=== PATIENT | male | born 1980 | race African-American/Black ===

== ENCOUNTER 2018-06-24 00:30 | Emergency (ER) | payer SELFPAY ==
[~2018-06-24] VITALS: Ht 177.8 cm; Wt 81.0 kg
[2018-06-24] MEDS ORDERED: SODIUM CHLORIDE 0.9% 1,000 ML IV ONE (01:04)
[2018-06-24] MEDS ORDERED: LORAZEPAM 2MG/ML CPJ IV ONE (01:15)
[2018-06-24 01:25] LABS: BASOPHILS % 0.5 % (0.0-2.0); EOSINOPHILS % 0.4 % (0.0-5.0); LYMPHOCYTES % 22.5 % (20.0-50.0); MEAN CORPUSCULAR VOLUME 88.8 fL (80.0-94.0); MEAN PLATELET VOLUME 9.5 fl (7.4-10.4); MONOCYTES % 7.2 % (2.0-8.0); NEUTROPHILS % 69.4 % (40.0-76.0); PLATELET 216 x1000/uL (130-400); RED BLOOD CELL COUNT 4.85 mill/uL (4.7-6.1); RED CELL DISTRIBUTION WIDTH 14.1 % (11.6-14.6)
[2018-06-24 01:30] LABS: CHLORIDE 111 mEq/L (98-107)
[2018-06-24] MEDS ORDERED: PHENYTOIN SODIUM EXTENDED 100MG CAPSULE PO ONE (02:00)
[2018-06-24] MEDS ORDERED: PHENYTOIN SODIUM 300 MG in SODIUM CHLORIDE 0.9% 50 ML IV NR (03:45)
[2018-06-24 06:43] VITALS: BP 137/80
== END 2018-06-24 06:43 | disposition home or self-care (01) ==
LOC: ER 00:30
DX: G40.909 Epilepsy, unspecified, not intractable, without status epilepticus (principal); Z91.14 Patient's other noncompliance with medication regimen
CPT/HCPCS: 36415; 80053; 80185; 85025; 96365; 96375; 99285; J1165; J2060; J7030

== ENCOUNTER 2020-04-03 04:08 | Inpatient (IN) | payer MEDICAID ==
[~2020-04-03] VITALS: Ht 172.7 cm; Wt 73.5 kg
[2020-04-03 04:52] LABS: BASOPHILS % 0.6 % (0.0-2.0); CHLORIDE 109 mEq/L (98-107); EOSINOPHILS % 2.9 % (0.0-5.0); HEMATOCRIT. 42.5 % (42.0-52.0); HEMOGLOBIN. 13.8 g/dL (14.0-18.0); LYMPHOCYTES % 49.4 % (20.0-50.0); MEAN CORPUSCULAR HEMOGLOBIN 28.6 pg (28.0-32.0); MEAN CORPUSCULAR VOLUME 87.8 fL (80.0-94.0); MEAN PLATELET VOLUME 8.8 fl (7.4-10.4); MONOCYTES % 8.4 % (2.0-8.0); NEUTROPHILS % 38.7 % (40.0-76.0); PLATELET 170 x1000/uL (130-400); RED BLOOD CELL COUNT 4.84 mill/uL (4.7-6.1); RED CELL DISTRIBUTION WIDTH 14.1 % (11.6-14.6)
[2020-04-03 04:56] LABS: ETHANOL BLOOD < 10 mg/dL
[2020-04-03] MEDS ORDERED: LEVETIRACETAM 500MG PREMIX 100 ML IV ONE (06:30)
[2020-04-03] MEDS ORDERED: LORAZEPAM 2MG/ML CPJ ONE (07:29)
[2020-04-03] MEDS ORDERED: PHENYTOIN SODIUM 100MG/2ML VIAL IV ONE (09:45)
[2020-04-03] MEDS ORDERED: PHENYTOIN SODIUM 500MG in SODIUM CHLORIDE 0.9% 50ML IV NR (10:00)
[2020-04-03] MEDS ORDERED: MAGNESIUM/ALUMINUM HYDROXIDE/SIMETHICONE 30ML UDC PO PRN (12:30)
[2020-04-03] MEDS ORDERED: NA PHOS,M-B/NA PHOS,DI-BA ENEMA 118ML PR PRN (12:30)
[2020-04-03] MEDS ORDERED: ACETAMINOPHEN 325MG TABLET PO PRN ×2 (12:30)
[2020-04-03] MEDS ORDERED: GUAIFENESIN 200MG/10ML SUGAR FREE UDC PO PRN (12:30)
[2020-04-03] MEDS ORDERED: ZOLPIDEM TARTRATE 5MG TABLET PO PRN (12:30)
[2020-04-03] MEDS ORDERED: CLONIDINE 0.1MG TABLET PO PRN (12:30)
[2020-04-03] MEDS ORDERED: NITROGLYCERIN 0.4MG TABLET SL SL PRN (12:30)
[2020-04-03] MEDS ORDERED: LORAZEPAM 2MG/ML CPJ IV PRN (12:30)
[2020-04-03] MEDS ORDERED: IPRATROPIUM/ALBUTEROL 0.5-3(2.5)MG/3ML NEB NEB PRN (12:30)
[2020-04-03] MEDS ORDERED: DOCUSATE SODIUM 100MG CAPSULE PO PRN (12:30)
[2020-04-03] MEDS ORDERED: ONDANSETRON HCL 4MG/2ML INJ IV PRN (12:30)
[2020-04-03] MEDS: ENOXAPARIN 40MG/0.4ML SYR SUBCUT SCH (13:00)
[2020-04-03 13:15] LABS: *AMPHETAMINES SCREEN URINE NEGATIVE (NEGATIVE); *BARBITURATES SCREEN URINE NEGATIVE (NEGATIVE); *BENZODIAZEPINES SCREEN URINE NEGATIVE (NEGATIVE); *COCAINE SCREEN URINE NEGATIVE (NEGATIVE); METHADONE URINE SCREEN NEGATIVE (NEGATIVE); OPIATES URINE SCREEN NEGATIVE (NEGATIVE); PHENCYCLIDINE URINE SCREEN NEGATIVE (NEGATIVE)
[2020-04-03 13:16] LABS: CANNABINOID URINE SCREEN PRESUMTIVE POSITIVE (NEGATIVE)
[2020-04-03 20:00] VITALS: BP 130/70
[2020-04-03 21:00] VITALS: BP 130/70
[2020-04-03] MEDS ORDERED: LEVETIRACETAM 500MG PREMIX 100 ML IV SCH (21:00)
[2020-04-03] MEDS: PHENYTOIN SODIUM EXTENDED 100MG CAPSULE PO SCH (22:19)
[2020-04-03] MEDS: FAMOTIDINE 20MG TABLET PO SCH (22:20)
[2020-04-04] VITALS: BP 128/78
[2020-04-04] MEDS: LEVETIRACETAM 500MG PREMIX 100 ML IV SCH ×3 (00:07→20:13)
[2020-04-04 00:12] LABS: CREATINE KINASE MB FRACTION 2.4 ng/mL (0.5-3.6)
[2020-04-04 00:24] LABS: CREATINE KINASE 1247 IU/L (39-308)
[2020-04-04 04:00] VITALS: BP 122/64
[2020-04-04] MEDS ORDERED: PHEN100C4 MT (07:02)
[2020-04-04 08:00] VITALS: BP 124/67
[2020-04-04] MEDS: FAMOTIDINE 20MG TABLET PO SCH ×2 (09:27→20:14)
[2020-04-04 12:00] VITALS: BP 114/62
[2020-04-04] MEDS: ENOXAPARIN 40MG/0.4ML SYR SUBCUT SCH (13:00)
[2020-04-04] MEDS: KETOROLAC 15MG/ML VIAL IV PRN (15:50)
[2020-04-04 16:14] VITALS: BP 105/40
[2020-04-04 20:00] VITALS: BP 140/69
[2020-04-04] MEDS: PHENYTOIN SODIUM EXTENDED 100MG CAPSULE PO SCH (20:14)
[2020-04-05] VITALS: BP 132/74
[2020-04-05 04:00] VITALS: BP 132/79
[2020-04-05] MEDS: KETOROLAC 15MG/ML VIAL IV PRN (04:31)
[2020-04-05 08:00] VITALS: BP 120/62
[2020-04-05] MEDS: LEVETIRACETAM 500MG PREMIX 100 ML IV SCH (09:15)
[2020-04-05] MEDS: FAMOTIDINE 20MG TABLET PO SCH (09:17)
[2020-04-05 10:24] VITALS: BP 120/70
== END 2020-04-05 11:20 | disposition home or self-care (01) | DRG 53 ==
LOC: ER 04:08 → 6WST 10:12 → ENRESERV 19:16
PROVIDERS: ADMIT Internal Medicine; ATTEND Internal Medicine
DX: G40.901 Epilepsy, unspecified, not intractable, with status epilepticus (principal); G92 Toxic encephalopathy; N17.0 Acute kidney failure with tubular necrosis; E16.2 Hypoglycemia, unspecified
CPT/HCPCS: 36415; 80053; 80185; 80305; 80320; 82550; 82553; 83036; 84484; 85025; 93005; 93970; 96365; 99285; J1165; J1650; J1885; J1953; J2060; G0480

== ENCOUNTER 2021-09-04 10:54 | Emergency (ER) | payer MEDICAID ==
[~2021-09-04] VITALS: Ht 167.6 cm; Wt 75.0 kg
[~2021-09-04 10:54] MED LIST: PHEN100C4 MT
[2021-09-04] MEDS ORDERED: ONDANSETRON HCL 4MG/2ML INJ IV STA (11:07)
[2021-09-04] MEDS ORDERED: SODIUM CHLORIDE 0.9% 1,000 ML IV ONE (11:15)
[2021-09-04 11:53] LABS: CLARITY URINE CLEAR (CLEAR); COLOR URINE YELLOW (YELLOW); KETONES URINE TRACE (NEGATIVE); LEUKOCYTE ESTERASE URINE NEGATIVE (NEGATIVE); NITRITE URINE NEGATIVE (NEGATIVE); OCCULT BLOOD URINE NEGATIVE (NEGATIVE); PH URINE 6.5 (4.5-8.0); PROTEIN URINE TRACE (NEGATIVE); SPECIFIC GRAVITY URINE 1.021 (1.005-1.030); UROBILINOGEN URINE 0.2 E.U./dL (0.2-1.0)
[2021-09-04] MEDS ORDERED: ONDANSETRON 4MG ODT PO ONE (13:15)
[2021-09-04 14:50] LABS: BASOPHILS % 1.1 % (0.0-2.0); HEMATOCRIT. 44.8 % (42.0-52.0); HEMOGLOBIN. 15.1 g/dL (14.0-18.0); LYMPHOCYTES % 39.4 % (20.0-50.0); MEAN CORPUSCULAR HEMOGLOBIN 28.5 pg (28.0-32.0); MEAN CORPUSCULAR VOLUME 84.7 fL (80.0-94.0); MEAN PLATELET VOLUME 9.7 fl (7.4-10.4); MONOCYTES % 14.1 % (2.0-8.0); NEUTROPHILS % 45.4 % (40.0-76.0); PLATELET 145 x1000/uL (130-400); RED BLOOD CELL COUNT 5.28 mill/uL (4.7-6.1); RED CELL DISTRIBUTION WIDTH 13.7 % (11.6-14.6)
[2021-09-04 14:58] LABS: CHLORIDE 105 mEq/L (98-107)
[2021-09-04] MEDS ORDERED: TOPUD PO (15:13)
[2021-09-04] MEDS ORDERED: IBUP-2028 MT (15:14)
[2021-09-04] MEDS ORDERED: ONDA4TAB5 MT (15:15)
[2021-09-04 15:33] VITALS: BP 109/75
== END 2021-09-04 15:34 | disposition home or self-care (01) ==
LOC: ER 11:06
DX: B34.9 Viral infection, unspecified (principal); R11.2 Nausea with vomiting, unspecified; G40.909 Epilepsy, unspecified, not intractable, without status epilepticus; Z79.899 Other long term (current) drug therapy; Z20.822 Contact with and (suspected) exposure to COVID-19
CPT/HCPCS: 36415; 71045; 80053; 81003; 83690; 85025; 87426; 99284; J7030; Q0162